=== PATIENT | female | born 1960 | race Caucasian/White ===

== ENCOUNTER 2016-06-30 19:57 | Emergency (ER) | payer MEDICARE, MEDICAID ==
[~2016-06-30] VITALS: Ht 152.4 cm; Wt 56.7 kg
[~2016-06-30 19:57] MED LIST: BSP10T PO; BUSP10TA95 PO; CHOL10003 PO; CHOL20002 PO; CHOL200059 PO; CIPR250T3 PO; DIPH25CA79 PO; DULO20CA PO; DULO60CA58 PO; DULO60CA6 PO; ESCT10T PO; HYDR-3454 PO; LEVO750T9 PO; LITH300C PO; LTH300C PO; MELO-170 PO; MELO7.5T46 PO; POTA99TA21 PO; SERT100T PO; SERT100T8 PO; SULF1TAB35 PO; TRAM200T2 PO; TRAM50TA2 PO
[2016-06-30 20:10] VITALS: BP 0/0
[2016-06-30] MEDS ORDERED: EPINEPHrine 0.1 MG/ML 10 ML (HOSPIRA) SYR IV ONE (23:59)
[2016-06-30] MEDS ORDERED: ATROPINE INJECTION 1 MG/10 ML SYR (ABBOTT) INJ ONE (23:59)
[2016-06-30] MEDS ORDERED: CATHETER FLUSH 10 ML SYR IV ONE (23:59)
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
== END 2016-06-30 20:10 | disposition expired ==
LOC: EDUNIT# 19:58 → ER 19:59
DX: T17.220A Food in pharynx causing asphyxiation, initial encounter (principal); F17.210 Nicotine dependence, cigarettes, uncomplicated; Z79.899 Other long term (current) drug therapy; Y92.011 Dining room of single-family (private) house as the place of occurrence of the external cause
CPT/HCPCS: 93041; 99291